=== PATIENT | female | born 1995 | race Caucasian/White ===

== ENCOUNTER 2016-09-23 21:00 | Emergency (ER) | payer OTHER ==
--- NOTE | 2016-09-23 22:18 | ED CLINICAL REPORT ---
Clinical Report - Physicians/Mid Levels [facility] [address] [place] [address] 09/23/2016 21:02 Patient: MARCE MILLER Time Seen: 21:16; initial patient contact. Arrived- By private vehicle. Historian- patient. HISTORY OF PRESENT ILLNESS Chief Complaint: CHEST PAIN. This started today and is still present. It is described as sharp and "pain" and it is described as located in the left chest area and in the left scapular area. No nausea or vomiting. Similar symptoms previously: Recent medical care: The patient was seen recently at another facility in a clinic. REVIEW OF SYSTEMS No fever, chills, cough, pedal edema or calf pain. All systems otherwise negative, except as recorded above. PAST HISTORY See nurses notes. Risk factors for heart disease- hypertension. Problems: Hypertension. Medications: Depo-Provera Intramuscular, every 3 months. Metoprolol Tartrate Oral 25 mg, 2 x daily. Allergies: No Known Drug Allergy. SOCIAL HISTORY No drug use. FAMILY HISTORY Negative. ADDITIONAL NOTES The nursing notes have been reviewed with agreement regarding the chief complaint, HPI, ROS, PMH and patient medications and allergies. PHYSICAL EXAM Vital Signs: 09/23/2016 21:25 BP: 122/81. HR: 79. RR: 16. O2 saturation: 100%. 09/23/2016 21:06 BP: 134/78. HR: 96. RR: 16. O2 saturation: 100%. Temp: 98.3 F. Pain level now: 6/10. Have been reviewed. Appearance: Alert. Oriented X3. No acute distress. Eyes: Pupils equal, round and reactive to light. ENT: Ears normal. Nose normal. Neck: Normal inspection. Neck supple. CVS: Normal heart rate and rhythm. Heart sounds normal. Pulses normal. Respiratory: No respiratory distress. Chest pain reproducible with palpation of the lateral and posterior chest wall, with movement of the left arm and with deep breathing. Breath sounds normal. No splinting, decreased air movement, rales, rhonchi or wheezes. LABS, X-RAYS, AND EKG EKG: EKG time: (:13). No acute process. Normal EKG. Normal sinus rhythm. Normal P waves. Normal MILI. Normal QRS complex. Normal axis. Normal ST and T waves and QT. Normal EKG. The study has been interpreted contemporaneously by me. The study has been independently viewed by me. The EKG appears to be a good tracing. I agree with and confirm the computer reading of the EKG. Chest X-ray: No acute disease. Normal lung markings present. Normal heart size. Mediastinum normal. Great vessels normal. No infiltrate. No fracture. (Name: Marce Miller : 1995 MR#: [id number] Ordering Provider: GERALDO PATEL Exam(s): XR CHEST 2 VIEW Date of Exam: 09/23/2016 __ PROCEDURE: XR CHEST 2 VIEW INDICATION: COUGH TECHNIQUE: PA and lateral views. COMPARISON: None. FINDINGS: Allowing for overlying wires and electrodes, lungs are clear. Heart and mediastinum are normal. Thorax is normal. IMPRESSION: 1. Negative chest. Electronically Final signed by:Harinder Medrano MD 09/23/2016 10:27:11 PM Technologist: JERAD). Normal Chest X-Ray. Views: PA and lateral. Technique: good. The X-rays were independently viewed by me, interpreted by the radiologist and discussed with the radiologist. Laboratory Tests: UA-Culture if indicated: (GABBIE: 09/23/2016 22:05) ( MsgRcvd 09/23/2016 22:17) Final results Test Result Flag Units (Reference) URINE COLOR YELLOW URINE APPEARANCE CLEAR URINE GLUCOSE NEGATIVE (NEGATIVE) URINE BILIRUBIN NEGATIVE (NEGATIVE) URINE KETONE NEGATIVE (NEGATIVE) URINE SPECIFIC GRAVITY 1.010 (1.010-1.030) URINE PH 7.5 (5.0-8.0) URINE PROTEIN NEGATIVE (NEGATIVE) URINE UROBILINOGEN 0.2 EU/dL (0.2-1.0) URINE NITRITE NEGATIVE (NEGATIVE) URINE BLOOD NEGATIVE (NEGATIVE) URINE LEUK ESTERASE NEGATIVE (NEGATIVE) URINE RBC 0-1 rbc/hpf (0-1) URINE WBC 0-1 wbc/hpf (0-1) URINE EPITHELIAL CELLS 0-1 EPI/hpf (0-5) URINE BACTERIA NONE SEEN (NONE SEEN) URINE COMMENT CULT NOT INDICATED URINE CULTURES ARE SET-UP BASED ON THE FOLLOWING CRITERIA:POSITIVE NITRITEPOSITIVE LEUKOCYTE ESTERASEGREATER THAN 10 WHITE BLOOD CELLSMODERATE (2+) OR GREATER BACTERIA . PROGRESS AND PROCEDURES Course of Care: posterior chest pain and shoulder pain with palpation, reproduceable with negative ecg for acute changes. reassurance. Patient is stable. Symptoms better. CLINICAL IMPRESSION Acute posterior chest wall myofascial strain Atypical chest pain .12 lead EKG performed. INSTRUCTIONS No strenuous activity for two days until better. Do not work tomorrow. Follow a low salt diet. Do not smoke. No alcohol. Warnings: Further evaluation is necessary. Your Current Medications: CONTINUE TAKING THE FOLLOWING MEDICATIONS: Depo-Provera Intramuscular : every 3 months. Metoprolol Tartrate Oral : 25 mg 2 x daily. Prescription Medications: Ultram 50 mg: take 1 orally every 8 hours as needed for pain. Dispense fifteen (15). No refills. Substitution is permissible. Follow-up: Follow up with your doctor Saturday even if well. Call for an appointment. Understanding of the discharge instructions verbalized by patient. (Electronically signed by Geraldo Patel PA-C 09/24/2016 1:25)
--- NOTE | 2016-09-23 22:18 | ED NURSING NOTES ---
Clinical Report - Nurses [facility] [address] [place] [address] 09/23/2016 21:02 [id number] TRI[facility] Triage time 21:Sep 23 2016. Acuity: LEVEL 3. Alert. ANDREW COMA SCORE: Andrew Coma Scale: 15- eyes open spontaneously (4); best verbal response- oriented x 4 (5); best motor response- obeys commands (6). --21:21 Erick Fleming R.N. 21:06 09/23/16. BP: 134/78. HR: 96. RR: 16. O2 saturation: 100% on room air. Temp: 98.3 F (oral). Pain level now: 6/10. Additional comments: Chest Pain. --21:21 Erick Fleming R.N. Chief Complaint: CHEST PAIN. --00:00 Erick Green R.N. Weight: 68.9 kg stated. Height/Length: 62 inches Per Patient. BMI: 27.8. --21:17 Erick Fleming R.N. Medications Metoprolol Tartrate Oral 25 mg, 2 x daily. --21:07 Erick Fleming R.N. Depo-Provera Intramuscular, every 3 months. --21:14 Erick Fleming R.N. Medication/allergy information source: the patient. --21:21 Erick Fleming R.N. Allergies No Known Drug Allergy. --21:07 Erick Fleming R.N. History Arrived by private vehicle. Historian: patient. Accompanied by friend. Primary physician (Rick Roa, Rick). ( Chest Pain, located anterior (L) side.). This started today. Onset. (about 12 hours ago and is intermittent, waxing and waning). She has had nausea and a cough. ( Headache). 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 PAST MEDICAL HX: Hypertension. Immunizations: status is unknown. Denies current . SOCIAL HX: Light tobacco smoker (cigarette)- less than 1/2 a pack per day. No alcohol use or drug use. No infectious disease exposure. ABUSE ASSESSMENT: No report of abuse. FALL RISK ASSESSMENT: Fall risk assessment completed. No fall risk identified. NUTRITIONAL RISK ASSESSMENT: The nutritional risk assessment revealed no deficiencies. FUNCTIONAL ASSESSMENT: Functional assessment: no impairments noted. LEARNING NEEDS ASSESSMENT: The learning needs assessment revealed no barriers. SKIN INTEGRITY ASSESSMENT: Skin integrity risk assessment completed. No skin integrity risk identified. --21:21 Erick Fleming R.N. PROBLEMS: Hypertension. --21:12 Erick Fleming R.N. ADDITIONAL SURGERIES: . Ovarian Cyst. --21:13 Erick Fleming R.N. Interventions ID band on patient. To treatment room. --21:21 Erick Fleming R.N. PHYSICAL ASSESSMENT Ambulatory to room. GENERAL / NEURO / PSYCH: Alert. Oriented X 4. HEENT: Mucous membranes are pink. RESPIRATORY: Respirations not labored. Chest nontender. Breath sounds within normal limits. CVS: Normal sinus rhythm noted. Heart sounds within normal limits. Pulses within normal limits. Capillary refill less than 2 seconds. GI / : Abdomen soft and nontender. EXTREMITIES: No lower extremity edema. SKIN: Skin is warm and dry. Normal skin turgor. Skin is non-tender. --21:23 Erick Fleming R.N. NURSING PROGRESS NOTES 21:09/23/2016 Site #1 started via IV in the right hand with an 20g angiocath, with aseptic technique and good blood return; one attempt. Blood drawn: rainbow set. Labeled in the presence of the patient and sent to the lab. Saline lock flushed with 10 mL saline (start by JORDYN Conklin). --21:19 Erick Fleming R.N. speech correction assistant, pulse oximeter and NIBP monitor placed on patient; transport company manager- Lead II and V1; monitor alarms on. Patient gowned. Reassurance given to the patient. Patient identifiers checked. Call light placed in reach. Side rails up x 1. Bed placed in lowest position. Brakes of bed on. Patient ready for evaluation- chart flagged and ED physician notified. --21:24 Erick Fleming R.N. 21:25 01/08/17. BP: 122/81. HR: 79. RR: 16. O2 saturation: 100% on room air. --21:26 Erick Fleming R.N. 21:27 09/23/16. Temp: 99.5 F (oral). --21:27 Erick Fleming R.N. EKG time: (2112). EKG was ordered, performed by a tech and shown to the ED physician and PA. --21:29 Brian Rodriguez, ER Rcp 21:46. Patient transported to radiology by stretcher with tech. --21:54 Erick Green R.N. 21:53. Patient returned from radiology by stretcher with tech. --21:55 Erick Green R.N. Patient ID band checked for patient name and birthdate: patient confirmed. Clean catch urine collected with return of yellow-colored clear urine; sample sent to lab for urinalysis. Specimen labeled in the presence of the patient. --22:06 Brian Rodriguez, ER Rcp 22:35 09/23/2016 Tylenol (Acetaminophen) PO 650 mg given. Allergies verified and confirmed 5 rights. --22:37 Erick Green R.N. 22:39. The patient is calm and resting quietly. RESPIRATORY: No respiratory distress. SKIN: Skin is warm and dry. Skin color within normal limits. --22:42 Erick Green R.N. DISPOSITION / DISCHARGE 22:30 09/23/2016 Site #1 removed upon discharge. Catheter intact. Bandage applied. --22:33 Erick Green R.N. Departure time: 22:41. Condition at departure: stable. No learning barriers present. Discharge instructions provided and reviewed with the patient. Reviewed medication(s) side effects, precautions, dosing and course information. Prescription(s) given to the patient. Patient verbalized understanding. Written instructions provided in Portuguese. The patient was discharged home and accompanied by technical data analyst. She left the Emergency Department ambulatory and via private vehicle. Mechanic And Welder driving. FALL RISK ASSESSMENT: Fall risk assessment completed. No fall risk identified. --22:42 Erick Green R.N. 22:31 09/23/16. BP: 120/63. HR: 77. RR: 15. O2 saturation: 100%. Pain level now: 12/24. --22:42 Erick Green R.N. Locked/Released at 09/24/2016 0:00 by Erick Green R.N.
--- NOTE | 2016-09-23 22:18 | ED NURSING NOTES ---
Clinical Report - Nurses [facility] [address] [place] [address] 09/23/2016 21:02 [id number] Triage time 21:Sep 23 2016. Acuity: LEVEL 3. Alert. ANDREW COMA SCORE: Andrew Coma Scale: 15- eyes open spontaneously (4); best verbal response- oriented x 4 (5); best motor response- obeys commands (6). --21:21 Erick Fleming R.N. 21:06 09/23/16. BP: 134/78. HR: 96. RR: 16. O2 saturation: 100% on room air. Temp: 98.3 F (oral). Pain level now: 6/10. Additional comments: Chest Pain. --21:21 Erick Fleming R.N. Chief Complaint: CHEST PAIN. --00:00 Erick Green R.N. Weight: 68.9 kg stated. Height/Length: 62 inches Per Patient. BMI: 27.8. --21:17 Erick Fleming R.N. Medications Metoprolol Tartrate Oral 25 mg, 2 x daily. --21:07 Erick Fleming R.N. Depo-Provera Intramuscular, every 3 months. --21:14 Erick Fleming R.N. Medication/allergy information source: the patient. --21:21 Ercik Fleming R.N. Allergies No Known Drug Allergy. --21:07 Erick Fleming R.N. History Arrived by private vehicle. Historian: patient. Accompanied by friend. Primary physician (Rick Roa, Rick). ( Chest Pain, located anterior (L) side.). This started today. Onset. (about 12 hours ago and is intermittent, waxing and waning). She has had nausea and a cough. ( Headache). 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 PAST MEDICAL HX: Hypertension. Immunizations: status is unknown. Denies current . SOCIAL HX: Light tobacco smoker (cigarette)- less than 1/2 a pack per day. No alcohol use or drug use. No infectious disease exposure. ABUSE ASSESSMENT: No report of abuse. FALL RISK ASSESSMENT: Fall risk assessment completed. No fall risk identified. NUTRITIONAL RISK ASSESSMENT: The nutritional risk assessment revealed no deficiencies. FUNCTIONAL ASSESSMENT: Functional assessment: no impairments noted. LEARNING NEEDS ASSESSMENT: The learning needs assessment revealed no barriers. SKIN INTEGRITY ASSESSMENT: Skin integrity risk assessment completed. No skin integrity risk identified. --21:21 Erick Fleming R.N. PROBLEMS: Hypertension. --21:12 Erick Fleming R.N. ADDITIONAL SURGERIES: . Ovarian Cyst. --21:13 Erick Fleming R.N. Interventions ID band on patient. To treatment room. --21:21 Erick Fleming R.N. PHYSICAL ASSESSMENT Ambulatory to room. GENERAL / NEURO / PSYCH: Alert. Oriented X 4. HEENT: Mucous membranes are pink. RESPIRATORY: Respirations not labored. Chest nontender. Breath sounds within normal limits. CVS: Normal sinus rhythm noted. Heart sounds within normal limits. Pulses within normal limits. Capillary refill less than 2 seconds. GI / : Abdomen soft and nontender. EXTREMITIES: No lower extremity edema. SKIN: Skin is warm and dry. Normal skin turgor. Skin is non-tender. --21:23 Erick Fleming R.N. NURSING PROGRESS NOTES 21:09/23/2016 Site #1 started via IV in the right hand with an 20g angiocath, with aseptic technique and good blood return; one attempt. Blood drawn: rainbow set. Labeled in the presence of the patient and sent to the lab. Saline lock flushed with 10 mL saline (start by JORDYN Conklin). --21:19 Erick Fleming R.N. quality assurance monitor, pulse oximeter and NIBP monitor placed on patient; front desk monitor- Lead II and V1; monitor alarms on. Patient gowned. Reassurance given to the patient. Patient identifiers checked. Call light placed in reach. Side rails up x 1. Bed placed in lowest position. Brakes of bed on. Patient ready for evaluation- chart flagged and ED physician notified. --21:24 Erick Fleming R.N. 21:25 01/08/17. BP: 122/81. HR: 79. RR: 16. O2 saturation: 100% on room air. --21:26 Erick Fleming R.N. 21:27 09/23/16. Temp: 99.5 F (oral). --21:27 Erick Fleming R.N. EKG time: (2112). EKG was ordered, performed by a tech and shown to the ED physician and PA. --21:29 Brian Rodriguez, ER Structures Assembler 21:46. Patient transported to radiology by stretcher with tech. --21:54 Eirck Green R.N. 21:53. Patient returned from radiology by stretcher with tech. --21:55 Erick Green R.N. Patient ID band checked for patient name and birthdate: patient confirmed. Clean catch urine collected with return of yellow-colored clear urine; sample sent to lab for urinalysis. Specimen labeled in the presence of the patient. --22:06 Brian Rodriguez, ER Structures Assembler 22:35 09/23/2016 Tylenol (Acetaminophen) PO 650 mg given. Allergies verified and confirmed 5 rights. --22:37 Erick Green R.N. 22:39. The patient is calm and resting quietly. RESPIRATORY: No respiratory distress. SKIN: Skin is warm and dry. Skin color within normal limits. --22:42 Erick Green R.N. DISPOSITION / DISCHARGE 22:30 09/23/2016 Site #1 removed upon discharge. Catheter intact. Bandage applied. --22:33 Erick Green R.N. Departure time: 22:41. Condition at departure: stable. No learning barriers present. Discharge instructions provided and reviewed with the patient. Reviewed medication(s) side effects, precautions, dosing and course information. Prescription(s) given to the patient. Patient verbalized understanding. Written instructions provided in Syriac. The patient was discharged home and accompanied by tier truck driver. She left the Emergency Department ambulatory and via private vehicle. Carpet Tile Layer driving. FALL RISK ASSESSMENT: Fall risk assessment completed. No fall risk identified. --22:42 Erick Green R.N. 22:31 09/23/16. BP: 120/63. HR: 77. RR: 15. O2 saturation: 100%. Pain level now: 12/24. --22:42 Erick Green R.N. Locked/Released at 09/24/2016 0:00 by Erick Green R.N.
--- NOTE | 2016-09-23 22:18 | ED ORDER SUMMARY ---
..... Patient: MARCE WAYNE OrderSheet [facility] VisitID: [id number] [place] [address] 20y, F Registration Date/Time: 09/23/2016 ORDER SHEET Weight: 68.9 kg (stated) Allergies: No Known Drug Allergy GENERAL ORDERS: Tree Marker (Continuous) (Chest Pain) (21:18 09/23/2016 Patti R.N. verbal order read back to ABlanchette PA-C) (21:21 [facility] ER Tech1) UA-Culture if indicated Urgent (21:18 09/23/2016 Patti R.N. verbal order read back to ABlanchette PA-C) (Ack 21:20 [facility] ER Tech1) (22:05 [facility] ER Tutoring Assistant) Pulse oximeter (21:18 09/23/2016 Patti R.N. verbal order read back to ABlanchette PA-C) (21:21 [facility] ER Tech1) EKG - ER Stat (21:18 09/23/2016 Patti R.N. verbal order read back to ABlanchette PA-C) (21:20 [facility] ER Tech1) Chest 2V (left chest pain posteriorly) Urgent (21:40 09/23/2016 ABlanchette PA-C) (Ack 21:46 [facility] ER Tech1) (21:49 SReitz R.N.) MEDICATION ORDERS: Tylenol PO 650 mg (NOW) (22:36 09/23/2016 Jacinda R.N. verbal order read back to ABlanchette PA-C) (22:37 JQuivey R.N.) IV FLUIDS: IV Saline Lock (21:18 09/23/2016 Patti R.N. verbal order read back to ABlanchette PA-C) (21:19 omanelli R.N.) ORDER SHEET NOTES: [Electronically signed by Erick Green R.N. (00:00 09/24/2016)] [Electronically signed by Sagrario Irving PA-C (01:25 09/24/2016)] [Electronically locked/signed by Erick Green R.N. (00:00 09/24/2016)]
--- NOTE | 2016-09-23 22:18 | ED CLINICAL REPORT ---
Clinical Report - Physicians/Mid Levels [facility] [address] [place] [address] 09/23/2016 21:02 Patient: MARCE MILLER Time Seen: 21:16; initial patient contact. Arrived- By private vehicle. Historian- patient. HISTORY OF PRESENT ILLNESS Chief Complaint: CHEST PAIN. This started today and is still present. It is described as sharp and "pain" and it is described as located in the left chest area and in the left scapular area. No nausea or vomiting. Similar symptoms previously: Recent medical care: The patient was seen recently at another facility in a clinic. REVIEW OF SYSTEMS No fever, chills, cough, pedal edema or calf pain. All systems otherwise negative, except as recorded above. PAST HISTORY See nurses notes. Risk factors for heart disease- hypertension. Problems: Hypertension. Medications: Depo-Provera Intramuscular, every 3 months. Metoprolol Tartrate Oral 25 mg, 2 x daily. Allergies: No Known Drug Allergy. SOCIAL HISTORY No drug use. FAMILY HISTORY Negative. ADDITIONAL NOTES The nursing notes have been reviewed with agreement regarding the chief complaint, HPI, ROS, PMH and patient medications and allergies. PHYSICAL EXAM Vital Signs: 09/23/2016 21:25 BP: 122/81. HR: 79. RR: 16. O2 saturation: 100%. 09/23/2016 21:06 BP: 134/78. HR: 96. RR: 16. O2 saturation: 100%. Temp: 98.3 F. Pain level now: 6/10. Have been reviewed. Appearance: Alert. Oriented X3. No acute distress. Eyes: Pupils equal, round and reactive to light. ENT: Ears normal. Nose normal. Neck: Normal inspection. Neck supple. CVS: Normal heart rate and rhythm. Heart sounds normal. Pulses normal. Respiratory: No respiratory distress. Chest pain reproducible with palpation of the lateral and posterior chest wall, with movement of the left arm and with deep breathing. Breath sounds normal. No splinting, decreased air movement, rales, rhonchi or wheezes. LABS, X-RAYS, AND EKG EKG: EKG time: (:13). No acute process. Normal EKG. Normal sinus rhythm. Normal P waves. Normal MILI. Normal QRS complex. Normal axis. Normal ST and T waves and QT. Normal EKG. The study has been interpreted contemporaneously by me. The study has been independently viewed by me. The EKG appears to be a good tracing. I agree with and confirm the computer reading of the EKG. Chest X-ray: No acute disease. Normal lung markings present. Normal heart size. Mediastinum normal. Great vessels normal. No infiltrate. No fracture. (Name: Marce Miller : 1995 MR#: [id number] Ordering Provider: GERALDO PATEL Exam(s): XR CHEST 2 VIEW Date of Exam: 09/23/2016 __ PROCEDURE: XR CHEST 2 VIEW INDICATION: COUGH TECHNIQUE: PA and lateral views. COMPARISON: None. FINDINGS: Allowing for overlying wires and electrodes, lungs are clear. Heart and mediastinum are normal. Thorax is normal. IMPRESSION: 1. Negative chest. Electronically Final signed by:Harinder Medrano MD 09/23/2016 10:27:11 PM Technologist: JERAD). Normal Chest X-Ray. Views: PA and lateral. Technique: good. The X-rays were independently viewed by me, interpreted by the radiologist and discussed with the radiologist. Laboratory Tests: UA-Culture if indicated: (GABBIE: 09/23/2016 22:05) ( MsgRcvd 09/23/2016 22:17) Final results Test Result Flag Units (Reference) URINE COLOR YELLOW URINE APPEARANCE CLEAR URINE GLUCOSE NEGATIVE (NEGATIVE) URINE BILIRUBIN NEGATIVE (NEGATIVE) URINE KETONE NEGATIVE (NEGATIVE) URINE SPECIFIC GRAVITY 1.010 (1.010-1.030) URINE PH 7.5 (5.0-8.0) URINE PROTEIN NEGATIVE (NEGATIVE) URINE UROBILINOGEN 0.2 EU/dL (0.2-1.0) URINE NITRITE NEGATIVE (NEGATIVE) URINE BLOOD NEGATIVE (NEGATIVE) URINE LEUK ESTERASE NEGATIVE (NEGATIVE) URINE RBC 0-1 rbc/hpf (0-1) URINE WBC 0-1 wbc/hpf (0-1) URINE EPITHELIAL CELLS 0-1 EPI/hpf (0-5) URINE BACTERIA NONE SEEN (NONE SEEN) URINE COMMENT CULT NOT INDICATED URINE CULTURES ARE SET-UP BASED ON THE FOLLOWING CRITERIA:POSITIVE NITRITEPOSITIVE LEUKOCYTE ESTERASEGREATER THAN 10 WHITE BLOOD CELLSMODERATE (2+) OR GREATER BACTERIA . PROGRESS AND PROCEDURES Course of Care: posterior chest pain and shoulder pain with palpation, reproduceable with negative ecg for acute changes. reassurance. Patient is stable. Symptoms better. CLINICAL IMPRESSION Acute posterior chest wall myofascial strain Atypical chest pain .12 lead EKG performed. INSTRUCTIONS No strenuous activity for two days until better. Do not work tomorrow. Follow a low salt diet. Do not smoke. No alcohol. Warnings: Further evaluation is necessary. Your Current Medications: CONTINUE TAKING THE FOLLOWING MEDICATIONS: Depo-Provera Intramuscular : every 3 months. Metoprolol Tartrate Oral : 25 mg 2 x daily. Prescription Medications: Ultram 50 mg: take 1 orally every 8 hours as needed for pain. Dispense fifteen (15). No refills. Substitution is permissible. Follow-up: Follow up with your doctor Saturday even if well. Call for an appointment. Understanding of the discharge instructions verbalized by patient. (Electronically signed by Geraldo Patel PA-C 09/24/2016 1:25)
--- NOTE | 2016-09-23 22:18 | ED ORDER SUMMARY ---
..... Patient: MARCE WAYNE OrderSheet [facility] VisitID: [id number] [place] [address] 20y, F Registration Date/Time: 09/23/2016 ORDER SHEET Weight: 68.9 kg (stated) Allergies: No Known Drug Allergy GENERAL ORDERS: Elevator Dispatcher (Continuous) (Chest Pain) (21:18 09/23/2016 Patti R.N. verbal order read back to ABlanchette PA-C) (21:21 [facility] Tech1) UA-Culture if indicated Urgent (21:18 09/23/2016 Patti R.N. verbal order read back to ABlanchette PA-C) (Ack 21:20 [facility] Tech1) (22:05 [facility] ER Wire Setter) Pulse oximeter (21:18 09/23/2016 Patti R.N. verbal order read back to ABlanchette PA-C) (21:21 [facility] Tech1) EKG - ER Stat (21:18 09/23/2016 Patti R.N. verbal order read back to ABlanchette PA-C) (21:20 [facility] ER Tech1) Chest 2V (left chest pain posteriorly) Urgent (21:40 09/23/2016 ABlanchette PA-C) (Ack 21:46 [facility] ER Tech1) (21:49 SReitz R.N.) MEDICATION ORDERS: Tylenol PO 650 mg (NOW) (22:36 09/23/2016 Jacinda R.N. verbal order read back to ABlanchette PA-C) (22:37 JQuivey R.N.) IV FLUIDS: IV Saline Lock (21:18 09/23/2016 Patti R.N. verbal order read back to ABlanchette PA-C) (21:19 omanelli R.N.) ORDER SHEET NOTES: [Electronically signed by Erick Green R.N. (00:00 09/24/2016)] [Electronically signed by Sagrario Irving PA-C (01:25 09/24/2016)] [Electronically locked/signed by Erick Green R.N. (00:00 09/24/2016)]
--- NOTE | 2016-09-23 22:28 | DIAGNOSTIC IMAGING REPORT ---
PROCEDURE: XR CHEST 2 VIEW INDICATION: COUGH TECHNIQUE: PA and lateral views. COMPARISON: None. FINDINGS: Allowing for overlying wires and electrodes, lungs are clear. Heart and mediastinum are normal. Thorax is normal. IMPRESSION: 1. Negative chest.
--- NOTE | 2016-09-24 01:25 | ED DISCHARGE INSTRUCTIONS ---
Patient: MARCE WAYNE General Instructions [facility] VisitID: [id number] [place] [address] 20y, F Registration Date/Time: 09/23/2016 Acute posterior chest wall myofascial strain Atypical chest pain .12 lead EKG performed. INSTRUCTIONS No strenuous activity for two days until better. Do not work tomorrow. Follow a low salt diet. Do not smoke. No alcohol. Warnings: Further evaluation is necessary. Your Current Medications: CONTINUE TAKING THE FOLLOWING MEDICATIONS: Depo-Provera Intramuscular : every 3 months. Metoprolol Tartrate Oral : 25 mg 2 x daily. Prescription Medications: Ultram 50 mg: take 1 orally every 8 hours as needed for pain. Dispense fifteen (15). No refills. Substitution is permissible. Follow-up: Follow up with your doctor Saturday even if well. Call for an appointment. Understanding of the discharge instructions verbalized by patient. ADDITIONAL INFORMATION Chest Pain, Noncardiac Based on your visit today, the exact cause of your chest pain is not certain. Your condition does not seem serious and your pain does not appear to be coming from your heart. However, sometimes the signs of a serious problem take more time to appear. Therefore, please watch for the warning signs listed below. Home Care: Rest today and avoid strenuous activity. Take any prescribed medicine as directed. Follow Up with your doctor or this facility as instructed or if you do not start to feel better within 24 hours. Get Prompt Medical Attention if any of the following occur: A change in the type of pain: if it feels different, becomes more severe, lasts longer, or begins to spread into your shoulder, arm, neck, jaw or back Shortness of breath or increased pain with breathing Cough with dark colored sputum (phlegm) or blood Weakness, dizziness, or fainting Fever of 100.4F (38C) or higher, or as directed by your healthcare provider Swelling, pain or redness in one leg Muscle Strain,Extremity A MUSCLE STRAIN is a stretching and tearing of muscle fibers. This causes pain, especially with motion of that muscle. There may also be some swelling and bruising. Home Care: 1) Keep the injured area raised to reduce pain and swelling. This is especially important during the first 48 hours. 2) Make an ice pack (ice cubes in a plastic bag, wrapped in a towel) and apply for 20 minutes every 1-2 hours the first day. You should continue with ice packs 3-4 times a day for the second and third days. Unless otherwise instructed, on the fourth day you may begin hot soaks or hot packs (small towel soaked in hot water) 3-4 times a day while you gently exercise the involved area. 3) You may use acetaminophen (Tylenol) or ibuprofen (Motrin, Advil) to control pain, unless another medicine was prescribed. [ NOTE : If you have chronic liver or kidney disease or ever had a stomach ulcer or GI bleeding, talk with your doctor before using these medicines.] 4) For LEG STRAINS: If CRUTCHES have been recommended, do not bear full weight on the injured leg until you can do so without pain. You may return to sports when you are able to hop and run on the injured leg without pain. Follow Up with your doctor or this facility if you are not improving within the next five days. Get Prompt Medical Attention if any of the following occur: -- Fingers or toes become swollen, cold, blue, numb or tingly -- Pain or swelling increases You have been given the following additional information: Chest Pain, Noncardiac Muscle Strain, Extremity No strenuous activity for two days until better. Do not work tomorrow. (Electronically signed by Sagrario Irving PA-C 09/24/2016 1:25)
--- NOTE | 2016-09-24 01:25 | ED MAR SUMMARY ---
..... Medication Administration Record [facility] [address] [place] [address] Patient: MARCE WAYNE Visit ID: [id number] 20y, F Weight: 68.9 kg Height/Length: 62 in BMI: 27.8 ALLERGIES: No Known Drug Allergy Given 22:35 09/23/2016 Erick Green, RBoomNBoom Medication Administered: TYLENOL [PO] (ACETAMINOPHEN), Dose: 650 mg PO. Medication Ordered: Tylenol PO 650 mg (NOW).
--- NOTE | 2016-09-24 01:25 | ED MED RECONCILIATION SUMMARY ---
Patient: MARCE WAYNE Medication Reconciliation Report [facility] VisitID: [id number] [address] [place] [address] 20y, F Registration Date/Time: 09/23/2016 Weight: 68.9 kg Height/Length: 62 in. BMI: 27.8 ALLERGIES: No Known Drug Allergy The patient's Home Medications are listed below: CONTINUE TAKING THE FOLLOWING MEDICATIONS: Depo-Provera Intramuscular, every 3 months Metoprolol Tartrate Oral 25 mg, 2 x daily The source(s) of the original Home Medication information: patient The following Medications were given to the patient in the Emergency Department: Tylenol [PO] PO 650 mg, administered: 09/23/2016 10:35:00 PM The following Medications were prescribed to the patient: Ultram 50 mg: take 1 orally every 8 hours as needed for pain. Dispense fifteen (15). No refills. Substitution is permissible. -- Sagrario Irving PA-C
--- NOTE | 2016-09-24 01:25 | ED MAR SUMMARY ---
..... Medication Administration Record [facility] [address] [place] [address] Patient: MARCE WAYNE Visit ID: [id number] 20y, F Weight: 68.9 kg Height/Length: 62 in BMI: 27.8 ALLERGIES: No Known Drug Allergy Given 22:35 09/23/2016 Erick Green, RBoomNBoom Medication Administered: TYLENOL [PO] (ACETAMINOPHEN), Dose: 650 mg PO. Medication Ordered: Tylenol PO 650 mg (NOW).
--- NOTE | 2016-09-24 01:25 | ED MED RECONCILIATION SUMMARY ---
Patient: MARCE WAYNE Medication Reconciliation Report [facility] VisitID: [id number] [address] [place] [address] 20y, F Registration Date/Time: 09/23/2016 Weight: 68.9 kg Height/Length: 62 in. BMI: 27.8 ALLERGIES: No Known Drug Allergy The patient's Home Medications are listed below: CONTINUE TAKING THE FOLLOWING MEDICATIONS: Depo-Provera Intramuscular, every 3 months Metoprolol Tartrate Oral 25 mg, 2 x daily The source(s) of the original Home Medication information: patient The following Medications were given to the patient in the Emergency Department: Tylenol [PO] PO 650 mg, administered: 09/23/2016 10:35:00 PM The following Medications were prescribed to the patient: Ultram 50 mg: take 1 orally every 8 hours as needed for pain. Dispense fifteen (15). No refills. Substitution is permissible. -- Sagrario Irving PA-C
== END 2016-09-23 22:41 | disposition home or self-care (01) ==
LOC: ED SRH 21:00
DX: S29.011A Strain of muscle and tendon of front wall of thorax, initial encounter (principal); X58.XXXA Exposure to other specified factors, initial encounter; Y93.89 Activity, other specified; Y92.9 Unspecified place or not applicable; Y99.8 Other external cause status; I10 Essential (primary) hypertension; Z79.899 Other long term (current) drug therapy; F17.210 Nicotine dependence, cigarettes, uncomplicated
CPT/HCPCS: 90004